=== PATIENT | female | born 1955 | race African-American/Black ===

== ENCOUNTER 2023-06-19 22:44 | Emergency (ER) | payer MEDICARE, OTHER ==
[~2023-06-19] VITALS: Ht 170.2 cm; Wt 79.1 kg
[2023-06-19 22:54] VITALS: TEMP 98.9
[2023-06-20] MEDS ORDERED: AMOXICILLIN875 MG PO (00:14)
[2023-06-20 00:40] VITALS: BP 144/58; PULSE 106
== END 2023-06-20 00:40 | disposition home or self-care (01) ==
LOC: COL.ER 22:44
DX: J02.0 Streptococcal pharyngitis (principal)